=== PATIENT | female | born 1985 | race Caucasian/White ===

== ENCOUNTER 2018-11-17 11:49 | Inpatient (IN) ==
[2018-11-17] MEDS ORDERED: MOTRIN PO PRN (13:01)
[2018-11-17] MEDS ORDERED: NICOTINE GUM BUCCAL PRN (13:01)
[2018-11-17] MEDS ORDERED: ZOFRAN ODT PO PRN (13:01)
[2018-11-17] MEDS ORDERED: PHENOBARBITAL IV PRN (13:01)
[2018-11-17] MEDS ORDERED: TUBERSOL ID ONE (13:01)
[2018-11-17] MEDS ORDERED: NICODERM PATCH TD PRN (13:01)
[2018-11-17] MEDS ORDERED: TYLENOL PO PRN (13:01)
[2018-11-17] MEDS ORDERED: ZOFRAN IV PRN (13:01)
[2018-11-17] MEDS ORDERED: DULCOLAX PR PRN (13:01)
[2018-11-17] MEDS ORDERED: ZOFRAN IM PRN (13:01)
[2018-11-17] MEDS ORDERED: IMODIUM PO PRN ×2 (13:01)
[2018-11-17] MEDS ORDERED: SEROQUEL PO PRN (13:01)
[2018-11-17] MEDS ORDERED: DESYREL PO PRN (13:01)
[2018-11-17] MEDS ORDERED: MAALOX PLUS LIQUID PO PRN (13:01)
[2018-11-17] MEDS ORDERED: D5W 1,000 ML IV PRN (13:01)
[2018-11-17] MEDS ORDERED: SENOKOT PO PRN (13:01)
[2018-11-17 13:58] LABS: INR 0.91; PROTIME 12.7 Seconds (11.0-16.0)
[2018-11-17 14:09] LABS: AMYLASE 38 U/L (20-200); LIPASE 17 U/L (13-60)
[2018-11-17 14:12] LABS: AGAP 11; ALBUMIN 4.2 g/dL (3.5-5.0); ALKALINE PHOSPHATASE 102 U/L (32-104); BUN 13 mg/dL (8-22); CALCIUM 9.3 mg/dL (8.8-10.2); CHLORIDE 101 mmol/L (98-107); COSMO 279; CREATININE 0.7 mg/dL (0.5-0.9); ESTIMATED GFR > 60; GLUCOSE 83 mg/dL (70-104); GOT 16 U/L (10-30); GPT 12 U/L (10-36); MCHC 33.3 g/dL (33-37); MCV 90.1 FL (81-99); MPV 11.5 FL (7.4-10.4); POTASSIUM 3.6 mmol/L (3.5-5.1); RBC 4.33 XMIL (4.2-5.4); RDW 13.9 % (11.5-14.5); SODIUM 140 mmol/L (136-145); TCO2 29 mmol/L (25-35); TOTAL PROTEIN 7.2 g/dL (6.3-8.3); WBC 11.85 X1000 (4.8-10.8)
[2018-11-17] MEDS ORDERED: SINEMET 25/100 PO PRN (17:22)
[2018-11-17] MEDS ORDERED: BENTYL PO PRN (17:22)
[2018-11-17] MEDS ORDERED: ATARAX PO PRN (17:22)
[2018-11-17] MEDS ORDERED: ROBAXIN PO PRN (17:22)
[2018-11-17] MEDS ORDERED: LIBRIUM PO PRN (17:22)
[2018-11-17 18:11] LABS: URINE SOURCE CLEAN CATCH
[2018-11-17 18:20] LABS: BILIRUBIN URINE NEGATIVE (NEGATIVE); BLOOD URINE NEGATIVE (NEGATIVE); CLARITY CLEAR (CLEAR); COLOR YELLOW; GLUCOSE URINE NEGATIVE (NEGATIVE); KETONE URINE TRACE mg/dL (NEGATIVE); LEUKOCYTES URINE 1+ (NEGATIVE); NITRITE URINE NEGATIVE (NEGATIVE); PH URINE 6.5; PROTEIN URINE NEGATIVE (NEGATIVE); UROBILINOGEN URINE 1 mg/dL
[2018-11-17 18:22] LABS: URINE BACTERIA 1+ /HFP; URINE EPITHELIAL CELLS >10 /HPF (<10); URINE RBC <10 /HPF (<10); URINE YEAST NONE SEEN /HPF
[2018-11-17 18:23] LABS: URINE CAST NONE SEEN /LPF; URINE CRYSTAL NONE SEEN /HPF
[2018-11-17 18:25] LABS: UR AMPHETAMINES QUAL NONE DETECTED (NONE DETECT); UR BARBITUATES QUAL NONE DETECTED (NONE DETECT); UR BENZODIAZEPIN QUAL NONE DETECTED (NONE DETECT); UR CANNABINOIDS QUAL NONE DETECTED (NONE DETECT); UR COCAINE QUAL NONE DETECTED (NONE DETECT); UR METHADONE QUAL NONE DETECTED (NONE DETECT); UR METHAMPHETAMINE QUAL NONE DETECTED (NONE DETECT); UR OPIATES QUAL NONE DETECTED (NONE DETECT); UR OXYCODONE QUAL NONE DETECTED (NONE DETECT); UR PCP QUAL NONE DETECTED (NONE DETECT); UR PROPOXYPHENE QUAL NONE DETECTED (NONE DETECT); UR TCA QUAL PRESUMPTIVE POSITIVE (NONE DETECT)
[2018-11-17] MEDS: SUBOXONE 2 MG/0.5 MG FILM SL SCH (20:02)
[2018-11-17] MEDS: SEROQUEL PO SCH (21:33)
[2018-11-18] MEDS: PROTONIX PO SCH (06:31)
[2018-11-18] MEDS: SUBOXONE 2 MG/0.5 MG FILM SL SCH (08:20)
[2018-11-18] MEDS: FOLIC ACID PO SCH (08:21)
[2018-11-18] MEDS: VITAMIN B-1 PO SCH (08:21)
[2018-11-18] MEDS: THERA M PLUS PO SCH (08:21)
[2018-11-18] MEDS: SEROQUEL PO SCH ×2 (08:21→20:36)
[2018-11-18] MEDS: SUBOXONE 8 MG/2 MG FILM SL SCH (20:36)
[2018-11-18] MEDS ORDERED: SUBOXONE 8 MG/2 MG FILM SL SCH (21:00)
[2018-11-19] MEDS: PROTONIX PO SCH (06:34)
[2018-11-19 08:04] VITALS: BP 108/80
[2018-11-19] MEDS: VITAMIN B-1 PO SCH (08:43)
[2018-11-19] MEDS: FOLIC ACID PO SCH (08:43)
[2018-11-19] MEDS: THERA M PLUS PO SCH (08:43)
[2018-11-19] MEDS: SUBOXONE 8 MG/2 MG FILM SL SCH (08:44)
[2018-11-19] MEDS: SEROQUEL PO SCH (08:44)
--- NOTE | 2018-11-19 12:13 | PROGRESS NOTE ---
DATE: 11/18/2018 SUBJECTIVE: The patient is awake and alert. She states she is feeling a lot better. She is still having muscle aches. Denies any fevers or chills. Denies dysuria or frequency. OBJECTIVE: Vital Signs: She is afebrile. Vital signs are stable. Heart rate is stable. O2 saturation 98% on room air. General: She is awake and alert. She is still somewhat distressed from physical withdrawal symptoms. HEENT: Normocephalic. Neck: Supple. CV: Regular rate. Chest: Clear. Abdomen: Soft. Extremities: Moves all extremities. ASSESSMENT: 1. Nausea and vomiting. 2. Abdominal pain. 3. Myalgias. 4. Paresthesias. 5. Paroxysmal sweating. 6. Opiate abuse, withdrawal and stabilization. PLAN: We will continue patient in the hospital. At this point we will increase 8/2 of Suboxone as this is what she had been on previously and was doing well. We will continue counseling. Further orders as needed. cc: Ricci Cortes MD
--- NOTE | 2018-11-19 12:16 | PROGRESS NOTE ---
DATE: 11/19/2018 INCOMPLETE REPORT - DICTATION STARTS HERE. SUBJECTIVE: The patient notes overall she is doing much better. Still having some withdrawal symptoms, but these have improved. Denies any fevers or chills. OBJECTIVE: Vital Signs: On physical examination, temperature 98.7, pulse 73, respiratory 20, BP 98/60. General: Patient is very pleasant to talk with. HEENT: Normocephalic. Neck: Supple. CV: Regular rate. Chest: Clear, nonlabored. Abdomen: Soft, nondistended. Extremities: Moves all extremities. Does have mild tremors, although these have improved. Neurologic: Disregard this progress note as it should be a discharge summary... What else can I do ??? I restarted the dictation at the beginning and dictated this. INCOMPLETE REPORT - DICTATION ENDS HERE. cc: Ricci Cortes MD MTDD
--- NOTE | 2018-11-19 14:20 | HISTORY AND PHYSICAL ---
CHIEF COMPLAINT: Nausea and vomiting. HISTORY OF PRESENT ILLNESS: This patient is a 33-year-old female, who presented to [facility] program secondary to nausea, vomiting, abdominal pain, myalgias. Notes that she has not been feeling well. She has been attempting to buy Suboxone off the street to get her life back under control. SOCIAL HISTORY: Patient is single. She is unemployed. Lives at home in [place]. PAST MEDICAL HISTORY: History of seizures that were related to detox, chronic anxiety. MEDICATIONS: No current medications. ALLERGIES: Codeine. REVIEW OF SYSTEMS: CINA score 7 secondary to nausea, vomiting, abdominal pain, myalgias, frequent temperature changes, paroxysmal sweating, history of withdrawal-related seizures. Denies any diarrhea, constipation, melena, hematochezia. Denies any dysuria, frequency, urgency, hesitancy. Denies polyuria or polydipsia. Denies skin rashes, weight loss or weight gain. SUBSTANCE ABUSE HISTORY: The patient was in recovery in February of 2019. She had been in a methadone clinic prior to that from 2007 to September of 2018. She started using stimulants at age 33, has not used until the previous 2 weeks. She has been on methadone since 2007 and stopped methadone. She has been attempting to get into a Suboxone clinic. Prior to the methadone, she has been using pain pills and then progressed to heroin. Started smoking at age 18. Currently smokes a pack a day. FAMILY HISTORY: Noncontributory. PHYSICAL EXAMINATION: VITAL SIGNS: Reviewed. GENERAL: Patient is awake, alert. She is in no current respiratory distress. HEENT: Normocephalic. NECK: Supple. CV: Regular rate. No murmurs. CHEST: Clear, nonlabored. ABDOMEN: Soft, nondistended. EXTREMITIES: Moves all extremities. NEUROLOGIC: No focal changes. SKIN: Warm and dry. No rashes. ASSESSMENT: 1. Nausea, vomiting. 2. Abdominal pain. 3. Myalgias. 4. Paresthesias. 5. Paroxysmal sweating. 6. Chronic anxiety. 7. Chronic tobacco abuse. 8. Chronic opiate abuse, withdrawal and stabilization. PLAN: We will continue patient in the hospital. We will continue to follow. Place her on Suboxone. Begin education. Further orders as needed. cc: Ricci Cortes MD
--- NOTE | 2018-11-19 19:36 | DISCHARGE SUMMARY ---
ADMISSION DATE: 11/17/2018 DISCHARGE DATE: 11/19/2018 DISCHARGE DIAGNOSES: 1. Nausea, vomiting. 2. Abdominal pain. 3. Myalgias. 4. Paresthesias. 5. Opiate abuse, withdrawal and stabilization. 6. Chronic tobacco abuse. 7. Anxiety. CONSULTATIONS: None. PROCEDURE: None. BRIEF HOSPITAL COURSE: The patient is a 33-year-old female who presented to [facility] program secondary to nausea, vomiting, abdominal pain, myalgias. She had been in a methadone treatment facility for 10 years previous and had recently detoxed off methadone. She has been trying to stay clean, but notes this is not a viable option. Until she could find other options, she had been abusing Suboxone by buying it off the street. The patient was admitted to the hospital. She was placed on Suboxone and counseled. Thankfully, she had an uneventful hospital course. On discharge, patient notes that she is feeling much better and states that she is excited, and willing to go to outpatient counseling as well as an outpatient clinic, so that she can keep her life off the streets and from using illegal substances. TIME SPENT: Greater than 30 minutes was spent in total counseling. Discussed with patient that she needs outpatient life counseling as well as drug counseling. She will follow up outpatient with treatment facility of choice. cc: Ricci Cortes MD
== END 2018-11-19 11:57 | disposition home or self-care (01) | DRG 897 ==
LOC: MERGE 11:49 → P.MEDSURG 11:49
PROVIDERS: ADMIT Family Medicine; ATTEND Family Medicine
CPT/HCPCS: 80053; 80104; 80301; 80305; 80307; 80320; 81001; 82055; 82150; 83690; 84703; 85027; 85610; 86580; 87088; A9270; G0431; G0434; G0477; G0480; G6040